=== PATIENT | female | born 1945 | race Caucasian/White ===

== ENCOUNTER 2018-02-06 08:24 | Day surgery (SDC) | payer MEDICARE ==
[2018-02-06] MEDS ORDERED: LIDOCAINE 1% MDV (10MG/ML) 20ML VIAL SQ ONE (08:25)
[2018-02-06] MEDS ORDERED: PROPOFOL 10 MG/ML VIAL IV ONE (08:25)
--- NOTE | 2018-02-23 16:01 | Operative Note ---
DATE OF SURGERY: 02/06/2018 Surgeon: Shon Kiser DO Referring physician: Stephon Noguera MD OPERATION: ESOPHAGOGASTRODUODENOSCOPY WITH MULTIPLE BIOPSIES INDICATION: History of nocturnal reflux with potential aspiration. The patient wakes up occasionally with severe heartburn and coughing, due to acid reflux. She did have a previous endoscopy in 2010. She takes no medications for this, claiming to have a heart arrhythmia side effect from Prilosec. Intravenous sedation was administered by the Department of Anesthesiology and included Diprivan titrated to effect. PROCEDURE: Following informed consent from this alert individual, including a discussion of the risks and benefits of the procedure, and an opportunity for the patient to ask questions, the patient was in the left lateral decubitus position. The Olympus GIF 180 video endoscope was inserted in the esophagus without resistance. The proximal esophagus had a normal appearance with normal folds and distensibility. The mid-esophagus likewise free from changes. The distal esophageal segment demonstrated some small superficial erosions just above the squamocolumnar junction. No ulcerations were seen. There was a small 1 to 2 cm hiatal hernia noted, which was free from mucosal changes. The subdiaphragmatic stomach was entered and found to be unremarkable except for some mild erythema in the gastric antrum and a small polyp noted in the proximal gastric antrum. The pylorus was symmetrical and patent. The duodenal bulb, sweep, and descending duodenum were examined in a sterile fashion and were found to be normal. The endoscope was then drawn back into the body of the stomach. Retroflexion accomplished following air insufflation, failed to demonstrate any additional changes. Again, the mucosa appeared normal. The endoscope was straightened. Biopsies were first taken from the antral gastric polyp. A second set of biopsies were taken from the stomach to assess for helicobacter pylori and check histology. The endoscope was then drawn back through the hiatal hernia sac and esophagus and removed from the patient. She tolerated the procedure well and was returned to the recovery area in stable condition. IMPRESSION: 1. A very mildly erosive distal esophagitis. 2. Small hiatal hernia. 3. Gastric antral polyp measuring 7 to 8 mm in size, biopsies taken. 4. Mild antral gastritis, biopsies taken. RECOMMENDATIONS: Because of the patient's potential cardiac arrhythmia related to Prilosec, I will prescribe Pepcid 20 mg twice daily for acid peptic changes. She may be able to reduce this to once daily, perhaps at night if able. Follow up will also be with Dr. Noguera. Further recommendations forthcoming pending results of biopsy. As always, thank you for allowing me to participate in the care of your patient. CC: Dr. Stephon Kiser, DO [facility]
== END 2018-02-06 10:25 | disposition home or self-care (01) ==
LOC: HOP 08:24
PROVIDERS: ATTEND Internal Medicine Gastroenterology
DX: K22.10 Ulcer of esophagus without bleeding (principal); K44.9 Diaphragmatic hernia without obstruction or gangrene; K31.7 Polyp of stomach and duodenum; K29.60 Other gastritis without bleeding; I10 Essential (primary) hypertension; E03.9 Hypothyroidism, unspecified